=== PATIENT | male | born 1950 | race Caucasian/White ===

== ENCOUNTER 2023-10-02 13:02 | Outpatient (OUT) | payer OTHER, SELFPAY ==
--- NOTE | 2023-10-02 13:15 | CT_ITS ---
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 TECHNIQUE: Routine low-dose CT lung screening without intravenous contrast. Dose reduction techniques were achieved by using automated exposure control and/or adjustment of MA and/or KV according to patient size and/or use of iterative reconstruction technique. FINDINGS: Cardiovascular: Stable mild atheromatous calcifications left anterior descending coronary. Stable moderate atheromatous calcification thoracic and proximal abdominal aorta and great vessels off the aortic arch. Lungs: Centrilobular emphysema and mild peribronchial thickening consistent with acute and/or chronic bronchitis. Nodules: Stable 0.3 cm noncalcified right upper lobe nodule (series 3 image 43). Stable 0.2 cm noncalcified left lower lobe nodule (series 3 image 77). Lymphadenopathy: There are no pathologically enlarged axillary, mediastinal or hilar lymph nodes. Other: The trachea, esophagus and thyroid gland are unremarkable. Upper abdomen: Cholecystectomy. Stable mild hypertrophy of both adrenal glands. Osseous: Partially imaged spinal fixation hardware cervical spine. The vertebral body degenerative changes along the spine are stable. CT/CT lung screening low-dose IMPRESSION: Centrilobular emphysema and mild peribronchial thickening consistent with acute and/or chronic bronchitis. Stable 0.3 cm noncalcified right upper lobe nodule (series 3 image 43) and stable 0.2 cm noncalcified left lower lobe nodule (series 3 image 77). There are no pathologically enlarged lymph nodes. Additional findings as described in the body the report. Lung rads score 2. A low-dose CT lung screen examination in 12 months is recommended. Electronically authenticated by: CHRISTY MCCURDY Date: 10/02/2023 15:55
== END 2023-10-02 13:03 | disposition home or self-care (01) ==
LOC: CT 13:02
PROVIDERS: PCP Internal Medicine; Visit Provider Nurse Practitioner Family
DX: J40 Bronchitis, not specified as acute or chronic (principal); Z12.2 Encounter for screening for malignant neoplasm of respiratory organs; F17.210 Nicotine dependence, cigarettes, uncomplicated
CPT/HCPCS: 71271

== ENCOUNTER 2023-10-10 15:10 | Outpatient (OUT) | payer OTHER, SELFPAY | END 2023-10-10 15:11 | disposition home or self-care (01) | LOC: PST 15:10 | PROVIDERS: PCP Internal Medicine; Visit Provider Surgery | DX: Z01.818 Encounter for other preprocedural examination (principal) ==